=== PATIENT | male | born 2000 | race Caucasian/White ===

== ENCOUNTER 2023-11-26 03:52 | Emergency (ER) | payer SELFPAY ==
[2023-11-26] VITALS (14 sets, daily range): BP systolic 84–146; BP diastolic 56–113; PULSE 93–108; RESP 15–19; TEMP 36.6–36.8; O2SAT 98–100; BMI 25.5
--- NOTE | 2023-11-26 04:00 | ED.RN ---
Pt continuously swearing at staff, pt being rude to staff and refusing to answer questions for nursing or doctor, and refusing nursing and doctor to evaluate him.
--- NOTE | 2023-11-26 04:23 | CT_ITS ---
EXAM: CT CHEST WITH INTRAVENOUS CONTRAST CLINICAL INDICATION: trauma TECHNIQUE: Helically acquired images were obtained of the chest with intravenous contrast. This CT exam was performed using one or more of the following dose reduction techniques: automated exposure control, adjustment of the mA and/or kV according to patient size, and/or use of iterative reconstruction technique. CONTRAST: isovue 300 100 ml RADIATION DOSE: Total DLP: 719.74 mGy-cm. COMPARISON: Cervical spine CT of this date. FINDINGS: LUNGS AND PLEURAL SPACES: Extrapleural/retrosternal hematoma is seen posteriorly and to the right of the inferior sternum; a tortuous vessel seen within the retrosternal region inferiorly to the right of midline, with extravasation of contrast from this tortuous vessel which may represent a pseudoaneurysm, and with additional extravasation of contrast from this vessel more inferiorly into the extrapleural space anterior to the liver and inferior lung. Extravasated contrast extends laterally within the extrapleural space anterior to the lower right lung, and is felt to connect with the right pleural space given the large right hemothorax. A few tiny bubbles of extraluminal gas are seen to the right of the esophagus just above the level of the diaphragmatic hiatus (axial images 86-95 series 8), most likely due to a trace of right pneumothorax as a few bubbles of pneumothorax are seen abutting the right hemothorax. Pneumomediastinum from esophageal injury felt much less likely. Compressive atelectasis noted adjacent to the right hemothorax. No pneumatocele. No apical pneumothorax. The left lung is clear. No left pleural effusion. HEART: The inferior retrosternal hematoma displaces the heart posteriorly and to the left. A crescent of blood is seen along the right heart border, consistent with extension of the hemothorax along the right side of the heart. No pericardial effusion is identified. MEDIASTINUM: Retrosternal hematoma inferiorly, as noted above. No hematoma posterior to the manubrium or upper sternum. Fat planes about the thoracic aorta are maintained. THYROID: Unremarkable. No thyroid lesions. BONES/JOINTS: The internal mammary artery is seen anterior to the extravasated contrast and appears intact; the contrast extravasation could be arising from a branch of this internal mammary artery or internal mammary vein. No sternal fracture or osteochondral disruption is identified. No acute fracture is identified. VASCULATURE: Unremarkable. Thoracic aorta is non-dilated. No thoracic aortic dissection. No obvious central pulmonary embolism although this study was not performed with the pulmonary embolism protocol. INTRAPERITONEAL SPACE: Visualized portions of the liver, gallbladder, pancreas, spleen, adrenal glands and kidneys are unremarkable. No pneumoperitoneum or hemoperitoneum is identified. CT/Chest WITH Contrast IMPRESSION: Active extravasation/active bleeding arising in the lower retrosternal region to the right of midline, with retrosternal hematoma inferiorly and with a large associated right hemothorax. Trace of extraluminal air to the right of the distal esophagus and posterior to the IVC, most likely a trace of pneumothorax, with pneumomediastinum from esophageal injury felt less likely. No acute sternal fracture or other acute fracture identified. No acute aortic injury. No acute intra-abdominal abnormality identified within the visualized portions of the upper abdomen. Nonstandard communication protocol initiated and completed. N.B. : The above Results were Read Back by Sanchez Coto MD to Kyle Mondragon DO, and understanding confirmed on 11/26/2023 06:14:33 (ET). Electronically Signed: Sanchez Coto MD at 6:23 EDT ,
--- NOTE | 2023-11-26 04:24 | CT_ITS ---
EXAM: CT CERVICAL SPINE WITHOUT INTRAVENOUS CONTRAST CLINICAL INDICATION: trauma TECHNIQUE: Helically acquired images were obtained of the cervical spine without intravenous contrast. 2D reformatted images were reviewed. This CT exam was performed using one or more of the following dose reduction techniques: automated exposure control, adjustment of the mA and/or kV according to patient size, and/or use of iterative reconstruction technique. RADIATION DOSE: Total DLP: 583.68 mGy-cm. COMPARISON: No relevant prior studies available. FINDINGS: VERTEBRAE: Reversal of the normal cervical lordosis. No subluxation. No discrete lytic or blastic abnormality. Normal craniocervical junction and cervicothoracic junction. No compression fracture, posterior element fracture or facet dislocation. The odontoid is intact. DISCS/SPINAL CANAL/NEURAL FORAMINA: Unremarkable. Disc heights are preserved. No critical stenosis. No neural foraminal encroachment. SOFT TISSUES: Unremarkable. No prevertebral soft tissue swelling. LUNG APICES: Visualized upper ribs are intact. No apical thorax. A moderate to large right pleural fluid collection is present. Chest CT to follow. CT/Spine Cervical without Contras IMPRESSION: Reversal of the cervical lordosis due to patient positioning or muscle spasm. No acute cervical fracture or subluxation. Moderate to large right pleural fluid collection. Chest CT to follow. No apical pneumothorax. Electronically Signed: Sanchez Coto MD at 5:44 EDT ,
--- NOTE | 2023-11-26 04:24 | CT_ITS ---
EXAM: CT HEAD WITHOUT INTRAVENOUS CONTRAST CLINICAL INDICATION: trauma TECHNIQUE: Multiple axial images were obtained of the head without intravenous contrast. This CT exam was performed using one or more of the following dose reduction techniques: automated exposure control, adjustment of the mA and/or kV according to patient size, and/or use of iterative reconstruction technique. RADIATION DOSE: Total DLP: 779.24 mGy-cm. COMPARISON: No relevant prior studies available. FINDINGS: BRAIN AND EXTRA-AXIAL SPACES: Unremarkable. No intra- or extra-axial hemorrhage. No evidence of acute infarct. No intracranial mass or mass effect. There is preservation of the cantrell/white matter interface. Posterior fossa structures are unremarkable. Ventricles are appropriate for age. No hydrocephalus. Basal cisterns are patent. BONES/JOINTS: No discrete lytic or blastic abnormalities. No linear or depressed skull fracture. SOFT TISSUES: Unremarkable. No scalp hematoma. SINUSES: Small right maxillary antrum which contains moderate mucosal thickening. Air-fluid level within the dependent portion of the left maxillary antrum. MASTOID AIR CELLS: Unremarkable. Clear. ORBITS: Visualized globes, extraocular muscles, optic nerves and retrobulbar fat appear unremarkable. CT/Brain/Head without Contrast IMPRESSION: No skull fracture or acute intracranial hemorrhage. Right maxillary mucosal thickening. Left maxillary air-fluid level, suggesting sinusitis. Electronically Signed: Sanchez Coto MD at 5:41 EDT ,
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
[2023-11-26 04:40] LABS: Absolute Lymphocyte Count 1.78 X10^3/uL (0.83-4.51); Absolute Neutrophil Count 7.1 X10^3/uL (2.0-7.7); Basophil# 0.04 X10^3/uL; Basophil% 0.4 % (0-1); Hemoglobin 17.6 g/dL (13.0-16.5); Lymphocyte # 1.78 X10^3/ul (0.83-4.51); Lymphocyte % 18.6 % (19-41); Mean Corp Hgb Conc 34.5 g/dL (32-36); Mean Corpuscular Hgb 30.7 pg (27.0-32.0); Mean Corpuscular Volume 88.9 fL (80-94); Mean Platelet Vol. 10.6 fl (6.2-12.0); Monocyte# 0.57 X10^3/uL; Monocyte% 5.9 % (0-10); NRBC Flagged by Analyzer 0 % (0-5); Neutrophil # 7.06 X10^3/uL (2.7-7.7); Neutrophil % 73.7 % (47-70); Platelet Count 260 K/mm3 (150-450); RBC Distribution Width CV 13.4 % (11.6-14.6); RBC Distribution Width SD 43.6 fl (35.1-43.9); Red Blood Count 5.74 M/mm3 (4.6-6.2); White Blood Count 9.6 K/mm3 (4.4-11.0)
[2023-11-26] MEDS: Morphine 4 MG/ML Syringe IV (04:45)
[2023-11-26] MEDS: Ondansetron 4 MG/2 ML Vial IV (04:46)
[2023-11-26] MEDS: 0.9% Normal Saline (1000mL) 1,000 ML 999 ML IV (05:00)
[2023-11-26 05:15] LABS: ALB/GLOB Ratio 1.1 RATIO (0.9-2.4); AST(SGOT) 55 U/L (15-37); Alanine Aminotransfer ALT/SGPT 126 U/L (16-61); Albumin, Serum 4.5 g/dL (3.2-5.0); Alkaline Phosphatase 104 U/L (45-117); Anion Gap 7 (5-15); BUN 12 mg/dL (7-18); BUN/Creat Ratio 11.1 RATIO (10-20); Calcium,Total 9.6 mg/dL (8.5-10.1); Chloride 103 mmol/L (98-107); Creatinine, Serum 1.08 mg/dL (0.70-1.30); EST Glomerular Filtration Rate 89 mL/min (>60); Est Glom Filt Rate - Afr Amer 107 mL/min (>60); Estimated Creatinine Clearance 112.33 ml/min; Glucose 115 mg/dL (74-106); Potassium 3.8 mmol/L (3.5-5.1); Protein, Total 8.5 g/dL (6.4-8.2); Sodium Level 137 mmol/L (136-145); Troponin-I HS < 3 pg/mL (3.0-78.0)
--- NOTE | 2023-11-26 05:30 | ED.RN ---
Pt requested to use the bathroom, offered urinal and pt declined. Syncopal episode while walking back to room.
[2023-11-26 05:42] LABS: Hematocrit 45.9 % (40-54); Hemoglobin 15.5 g/dL (13.0-16.5)
--- NOTE | 2023-11-26 06:03 | ED.RN ---
Pt in room demanding removing these fucking things out of my arms. This nurse to room to explain IVs to pt. Pt began stating I want a different fucking nurse. Nurses Salvador and Mary to room, pt yelling at staff, calling staff fat fucking bitches and fat fucking cunts. Pt holding up both middle fingers to nurses. Dr. Mondragon to room to discuss behavior to patient.
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
[2023-11-26] MEDS: Cefazolin 1 GM/50 ML BAG IV (06:30)
--- NOTE | 2023-11-26 06:34 | NURSING ---
NO OLD EKGS
[2023-11-26 06:47] LABS: Hematocrit 36.9 % (40-54); Hemoglobin 12.4 g/dL (13.0-16.5)
[2023-11-26] MEDS: Etomidate 20 MG/10 ML Vial 12.5 MG IV ×2 (06:53→07:00)
--- NOTE | 2023-11-26 07:06 | NURSING ---
20 MIN ETA FOR [facility]
--- NOTE | 2023-11-26 07:09 | RAD_ITS ---
STUDY: X-RAY CHEST REASON FOR EXAM: Male, 22 years old. CHEST TUBE PLACEMENT. TECHNIQUE: Single AP portable view of the chest. COMPARISON: CT scan from earlier today FINDINGS: Since the CT scan, a large caliber right-sided chest tube is been placed to reduce a previously noted pleural effusion. No evidence of pneumothorax or mediastinal shift. There is no longer blunting of the right costophrenic angle suggesting the majority of the effusion has resolved. There is some right basilar atelectasis. Left lung is clear. Normal size heart. Normal mediastinum and deandra. Normal visualized pulmonary arteries. Normal visualized aortic arch and descending thoracic aorta. Normal visualized thoracic spine. Normal visualized ribs, clavicles, and shoulders. There is no demonstrated abnormality of the visualized soft tissue structures of the upper abdomen. Small amount of subcutaneous emphysema in the right chest. RAD/Chest 1 View (Portable) IMPRESSION: Satisfactory appearance of a right-sided chest tube, no pneumothorax. Near complete resolution of a free-flowing right pleural effusion, with atelectasis in the right lung base. Small amount of subcutaneous emphysema in the right chest Left lung is clear Electronically Signed: Ant Miranda MD at 10:22 EDT ,
[2023-11-26] MEDS: Lidocaine 1% (20 ml mdv) 20 ML Vial 10 ML INFILT (07:11)
--- NOTE | 2023-11-26 08:28 | ED.RN ---
PT SCREAMING AND YELLING AND ATTEMPTING TO PULL ON CHEST TUBE.
== END 2023-11-26 07:50 | disposition short-term general hospital (02) ==
PROVIDERS: Emergency Provider Emergency Medicine; Visit Provider Emergency Medicine
DX: S00.83XA Contusion of other part of head, initial encounter (principal); D62 Acute posthemorrhagic anemia; F17.210 Nicotine dependence, cigarettes, uncomplicated; S50.811A Abrasion of right forearm, initial encounter; S20.20XA Contusion of thorax, unspecified, initial encounter; V89.2XXA Person injured in unspecified motor-vehicle accident, traffic, initial encounter; F10.129 Alcohol abuse with intoxication, unspecified
CPT/HCPCS: 32551; 70450; 71045; 71260; 72125; 80053; 80320; 84484; 85014; 85018; 85025; 86850; 86900; 86901; 86920; 86922; 93005; 96361; 96374; 96375; 99285; J7030; J7040; P9016; Q9967; A4216; G0480; J2405